=== PATIENT | female | born 1995 | race Caucasian/White ===

== ENCOUNTER 2021-07-29 22:14 | Emergency (ER) | payer OTHER ==
[2021-07-30] MEDS ORDERED: cefTRIAXone 2 GM in Sodium Chloride 0.9% 50 ML IV ONE (00:10)
[2021-07-30] MEDS ORDERED: Sodium Chloride 0.9% 10 ML Syringe FLUSH PRN (00:11)
== END 2021-07-30 01:21 | disposition home or self-care (01) ==
LOC: JP.ED 22:14
DX: L03.312 Cellulitis of back [any part except buttock and flank] (principal)
CPT/HCPCS: 36415; 85025; 86140; 96365; 99282; 99283; J0696; J3490